=== PATIENT | female | born 1990 | race Caucasian/White ===

== ENCOUNTER 2021-03-25 13:38 | Day surgery (SDC) | payer BC ==
[2021-03-25] MEDS ORDERED: hydrALAZINE 20 MG/ML VIAL SLOW IVP PRN (13:56)
[2021-03-25] MEDS ORDERED: Ondansetron PF 4 MG/2 ML Vial IVP PRN (13:56)
[2021-03-25] MEDS ORDERED: Promethazine HCl 25 MG/ML VIAL IM PRN (13:56)
[2021-03-25] MEDS ORDERED: Lactated Ringer's 1,000 ML IV SCH (14:00)
[2021-03-25 14:07] VITALS: BMI 27.9
== END 2021-03-25 16:44 | disposition home health service (06) ==
LOC: CSHLD/OP 13:38
PROVIDERS: ATTEND Student in an Organized Health Care Education/Training Program
DX: O21.2 Late vomiting of pregnancy (principal); Z3A.27 27 weeks gestation of pregnancy
CPT/HCPCS: J2405

== ENCOUNTER 2021-06-01 18:05 | Inpatient (IN) | payer BC, OTHER ==
[~2021-06-01 18:05] MED LIST: Lidocaine 2% MPF 10 ML AMP (For Epidural Use) ONE
[2021-06-01 20:01] VITALS: BMI 29.9
[2021-06-01] MEDS ORDERED: HYDROcodone/Acetaminophen 5/325 mg Tablet PO PRN ×2 (20:07)
[2021-06-01] MEDS ORDERED: Promethazine HCl 25 MG/ML VIAL IM PRN ×2 (20:07→21:38)
[2021-06-01] MEDS ORDERED: Lidocaine 1% (PF) 30 ML VIAL SC PRN (20:07)
[2021-06-01] MEDS ORDERED: Butorphanol Tartrate 1 MG/ML VIAL SLOW IVP PRN (20:07)
[2021-06-01] MEDS ORDERED: Ibuprofen 800 MG TAB PO PRN (20:07)
[2021-06-01] MEDS ORDERED: hydrALAZINE 20 MG/ML VIAL SLOW IVP PRN (20:07)
[2021-06-01] MEDS ORDERED: NS w/ Oxytocin 30 units 500 ML IV SCH ×2 (20:15)
[2021-06-01] MEDS ORDERED: Lactated Ringer's 1,000 ML IV SCH ×2 (20:15)
[2021-06-01 20:27] LABS: Hemoglobin 12.8 g/dL (12.0-15.5); Mean Corpuscular HGB CONC 34.7 g/dL (32.0-36.0); Mean Corpuscular Hemoglobin 28.8 pg (27.0-33.0); Mean Corpuscular Volume 82.9 fl (81.6-98.3); Mean Platelet Volume 10.7 fl (7.4-10.4); Platelet Count 236 10x3/uL (150-450); RBC Distribution Width 13.2 % (11.5-14.5); Red Blood Cell (RBC) Count 4.45 10x6/uL (3.90-5.03); White Blood Cell (WBC) Count 16.7 10x3/uL (3.5-10.5)
[2021-06-01 20:30] LABS: Glucose 77 mg/dL (70-105)
[2021-06-01] MEDS ORDERED: Fentanyl 2 mcg/Bup 0.1% Cadd 100 ML ONE (20:37)
[2021-06-01 20:56] LABS: Hep B Surf Ag Non-Reactive S/CO (NonReactive); Syphilis Antibody Nonreactive (Nonreactive); Syphilis Antibody Index 0.04 S/CO (<1.00 Non-Reactive)
[2021-06-01] MEDS: Fentanyl 2 mcg/Bupivacaine 0.1% Cassette 100 ML EPIDURAL SCH (21:10)
[2021-06-01 21:18] LABS: HBSAg Index 0.11 S/CO (0-0.99)
[2021-06-01] MEDS: Ondansetron PF 4 MG/2 ML Vial IVP PRN (21:21)
[2021-06-01] MEDS ORDERED: PHENYLEPHRINE-NS 100 MCG/ML 10 ML SYRINGE ONE (21:25)
[2021-06-01] MEDS ORDERED: diphenhydrAMINE 50 MG/ML VIAL IVP PRN (21:38)
[2021-06-01] MEDS ORDERED: Naloxone HCl 0.4 mg/ml Vial IVP PRN ×2 (21:38)
[2021-06-01] MEDS ORDERED: Hydrocerin (Eucerin) Cream 120 gm Jar TOP PRN (21:38)
[2021-06-01] MEDS ORDERED: Lactated Ringer's 500 ML IV PRN (21:38)
[2021-06-01] MEDS ORDERED: Acetaminophen 325 MG TAB PO PRN (21:38)
[2021-06-01] MEDS ORDERED: Ondansetron PF 4 MG/2 ML Vial IVP PRN (21:38)
[2021-06-01] MEDS ORDERED: ePHEDrine Sulfate 50 MG/10 ML VIAL SLOW IVP PRN (21:38)
[2021-06-01] MEDS ORDERED: Communication Order-Pharmacy FS SCH (21:45)
[2021-06-02] MEDS: Ondansetron PF 4 MG/2 ML Vial IVP PRN (02:50)
[2021-06-02] MEDS: Fentanyl 2 mcg/Bupivacaine 0.1% Cassette 100 ML EPIDURAL SCH (03:20)
[2021-06-02] MEDS ORDERED: Milk Of Magnesia 30 ML UDCUP PO PRN (09:57)
[2021-06-02] MEDS ORDERED: HYDROcodone/Acetaminophen 5/325 mg Tablet PO PRN (09:57)
[2021-06-02] MEDS ORDERED: Ondansetron PF 4 MG/2 ML Vial IVP PRN (09:57)
[2021-06-02] MEDS ORDERED: Lanolin Ointment 7 GM TUBE TOP PRN (09:57)
[2021-06-02] MEDS ORDERED: Benzocaine-Menthol 82.5 ML CAN TOP PRN (09:57)
[2021-06-02] MEDS ORDERED: diphenhydrAMINE 25 MG CAP PO PRN (09:57)
[2021-06-02] MEDS ORDERED: Preparation H Ointment 28 GM TUBE PR PRN (09:57)
[2021-06-02] MEDS ORDERED: hydrALAZINE 20 MG/ML VIAL SLOW IVP PRN (09:57)
[2021-06-02] MEDS ORDERED: Bisacodyl 10 MG SUPP PR PRN (09:57)
[2021-06-02] MEDS: Ibuprofen 800 MG TAB PO SCH ×2 (13:07→21:45)
[2021-06-02] MEDS: Ferrous Sulfate 325 MG TAB PO SCH (15:52)
[2021-06-02] MEDS: Docusate Calcium (SURFAK) 240 MG CAP PO SCH (21:45)
[2021-06-02] MEDS: HYDROcodone/Acetaminophen 5/325 mg Tablet PO PRN (21:45)
[2021-06-03] MEDS: Ibuprofen 800 MG TAB PO SCH ×3 (05:09→20:57)
[2021-06-03 05:51] LABS: Hemoglobin 9.9 g/dL (12.0-15.5)
[2021-06-03] MEDS: Ferrous Sulfate 325 MG TAB PO SCH ×2 (09:26→16:17)
[2021-06-03] MEDS: Docusate Calcium (SURFAK) 240 MG CAP PO SCH ×2 (09:26→20:56)
[2021-06-03] MEDS: Prenatal Vitamin 1 TAB PO SCH (09:26)
[2021-06-03] MEDS ORDERED: Boostrix 0.5 ML (Tdap) VIAL IM ONE (09:57)
[2021-06-03] MEDS: HYDROcodone/Acetaminophen 5/325 mg Tablet PO PRN (12:46)
[2021-06-04] MEDS: Ibuprofen 800 MG TAB PO SCH (04:31)
[2021-06-04 07:49] VITALS: BP 114/62; TEMP 98.1
[2021-06-04] MEDS: Prenatal Vitamin 1 TAB PO SCH (08:47)
[2021-06-04] MEDS: Ferrous Sulfate 325 MG TAB PO SCH (08:47)
[2021-06-04] MEDS: Docusate Calcium (SURFAK) 240 MG CAP PO SCH (08:47)
== END 2021-06-04 13:00 | disposition home or self-care (01) | DRG 806 ==
LOC: CSHLD/OP 18:05 → CSHLD 18:57 → CSHPP 06-02 10:20
PROVIDERS: ADMIT Student in an Organized Health Care Education/Training Program; ATTEND Student in an Organized Health Care Education/Training Program
PROC: 10E0XZZ Delivery of Products of Conception, External Approach (ICD-10-PCS; principal; 2021-06-02)
PROC: 0KQM0ZZ Repair Perineum Muscle, Open Approach (ICD-10-PCS; 2021-06-02)
PROC: 30233S1 Transfusion of Nonautologous Globulin into Peripheral Vein, Percutaneous Approach (ICD-10-PCS; 2021-06-02)
DX: O24.425 Gestational diabetes mellitus in childbirth, controlled by oral hypoglycemic drugs (principal); D62 Acute posthemorrhagic anemia; Z37.0 Single live birth; Z3A.37 37 weeks gestation of pregnancy; O90.81 Anemia of the puerperium; O70.1 Second degree perineal laceration during delivery
CPT/HCPCS: 36415; 36416; 51701; 51702; 82947; 85014; 85018; 85027; 85461; 86780; 86850; 86870; 86900; 86901; 87340; 90384; 96372; 99285; J2001; J2405; J2590; U0003; U0005